=== PATIENT | male | born 1975 | race Caucasian/White ===

== ENCOUNTER 2018-04-15 05:26 | Emergency (ER) | payer BC, OTHER ==
[2018-04-15] MEDS ORDERED: LIDOCAINE HCL 1%/EPI. (1:100,000) MDV 20ML VIAL IJ ONE (06:22)
[2018-04-15] MEDS ORDERED: HYDROcodone /APAP 5/325 1 EACH TABLET PO STA (06:39)
[2018-04-15] MEDS ORDERED: ONDANSETRON HCL 4 MG TAB.RAPDIS PO STA (06:39)
--- NOTE | 2018-04-15 07:19 | ED Physician Documentation ---
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 pt presents to the ED via POV c/o abscess to Left buttock x 2 days. pain 15/10. aching. non radiating. denies fever/chills or other symptoms or complaints. Pt is [employer]. pt denies current chest pain, dyspnea, syncope/near syncope, headache, dizziness, visual disturbances, n/v/d, fever/chills, rash, sick contacts, dysuria, trauma. melena or hematochezia, bleeding or easy bruising, change in bowel or bladder function, no recent weight loss/gain, anxiety or depression. ROS Negative unless otherwise specified. - ROS CONST: other (abscess) - PAST HX Past History: other (DM2) Surgeries/Procedures: other (Right knee) Allergies/Adverse Reactions: Allergies Allergy/AdvReac Type Severity Reaction Status Date / Time No Known Drug Allergies Allergy Verified 04/15/18 07:18 - SOCIAL HX Smoking History: less than 1 pack/day Alcohol Use: none Drug Use: none - FAMILY HX Family History: No - REVIEWED ASSESSMENTS Nursing Assessment Reviewed: Yes Vitals Reviewed: Yes Procedures I & D Procedure: betadine prep Progress: Procedure explained to patient and all questions answered. explained risks and follow up care that is required. pt consented to procedure. Patient positioned appropriately 5 ml lidocaine 1% with epinephrine was used as a local anesthetic. #15 blade scalple used for single incision. Additional local anesthetic injected into surrounding viable tissue with blunt dissection of loculated adhesions. mild drainage of pus (culture obtained). Wound packed with iodoform gauze. Procedure tolerated without complications. Wound dressed with sterile abd pad and paper tape. pt tolerated well. ED Results Lab/Radiology - Orders Orders: ED Orders Category Date Time Status HYDROcodone /APAP 5/325 [Eunice 5/325] Med 04/15/18 06:39 Discontinued 1 each PO NOW STA Lidocaine 1%/Epinephrine [Xylocaine 1%-EPI 1:100,000] Med 04/15/18 06:22 Discontinued 1 ml IJ .STK-MED ONE Ondansetron HCl Rapdis [Zofran Odt] Med 04/15/18 06:39 Discontinued 4 mg PO NOW STA General Adult Physical Exam - PHYSICAL EXAM GENERAL APPEARANCE: no distress EENT: no signs of dehydration, DAVE NECK: normal inspection, thyroid normal RESPIRATORY: no resp distress, chest non-tender, breath sounds normal CVS: reg rate & rhythm, heart sounds normal, equal pulses, no murmur, no gallop, PMI nml, no JVD, no friction rub, 24 ABDOMEN: soft, no organomegaly, normal bowel sounds, no abdominal bruit, no distension SKIN: other (5 cm x 3 cm area of induration, erythema, tenderness. ) EXTREMITIES: non-tender, normal range of motion, no evidence of injury, no edema, J, [employer]OCK[employer] NEURO: oriented X3, motor nml, sensation nml, mood/affect nml Discharge Clincal Impression: Abscess Additional Instructions: Rest. do not work today. may return tomorrow. follow up with primary care. Doxycycline 100 mg twice a day for 10 days. take with food hydrocodone 5/235 mg 1-2 every 6 hours for pain. follow up with primary care in 2 days to have wound rechecked. seek medical care immediately if difficult to wake or weakness, difficulty breathing, feeling faint or fainting, increased rash, chest pain, shortness of breath, or fever or any concern. follow up with primary care next week or before if not improving as expected. PLEASE UNDERSTAND THAT THIS IS AN EMERGENCY EVALUATION FOR YOUR COMPLAINT AND BY NATURE IS LIMITED AND NOT A SUBSTITUTE FOR ONGOING MEDICAL CARE. EVEN THOUGH TEST RESULTS AND TREATMENT PLAN WERE EXPLAINED THERE MAY BE A NEED FOR ADDITIONAL TESTING TO FULLY DETERMINE THE EXTENT OF YOUR ILLNESS/INJURY/OR CONCERN SO YOU SHOULD CONTACT AND OR ESTABLISH WITH A PRIMARY CARE PROVIDER (OR REFERRAL DOCTOR IF APPLICABLE) FOR AN APPOINTMENT SOON POSSIBLE Condition: Good Disposition: 01 HOME, SELF-CARE Decision to Admit: NO Date of Decison to Admit: 04/15/18 Decision Time: 07:26
[2018-04-15] MEDS ORDERED: DOXYCYCLINE 100 MG CAPSULE PO STA (07:23)
[2018-04-15 07:49] VITALS: BP 116/79
== END 2018-04-15 07:45 | disposition home or self-care (01) ==
LOC: ED 05:26
DX: L02.31 Cutaneous abscess of buttock (principal); B95.61 Methicillin susceptible Staphylococcus aureus infection as the cause of diseases classified elsewhere; Z16.11 Resistance to penicillins
CPT/HCPCS: 10061; 87070; 87186; 99283; A9270

== ENCOUNTER 2018-04-24 17:29 | Outpatient (CLI) | payer OTHER | END 2018-04-24 17:30 | LOC: LABRHC 17:29 | PROVIDERS: ATTEND Nurse Practitioner Family | DX: L02.31 Cutaneous abscess of buttock (principal) | CPT/HCPCS: 87070 ==

== ENCOUNTER 2018-05-31 11:10 | Outpatient (CLI) | payer OTHER ==
[2018-05-31 11:57] LABS: eGFR (Non-African) > 60
== END 2018-05-31 11:12 ==
LOC: LAB 11:10
PROVIDERS: ATTEND Nurse Practitioner Family
DX: E11.9 Type 2 diabetes mellitus without complications (principal); E03.9 Hypothyroidism, unspecified
CPT/HCPCS: 36415; 80053; 80061; 82043; 83036; 84439; 84443; 84481